=== PATIENT | male | born 1950 | race Caucasian/White ===

== ENCOUNTER → 2018-11-29 | Outpatient (CLI) | payer OTHER | LOC: CAT 14:47 | DX: Z13.6 Encounter for screening for cardiovascular disorders (principal); E78.00 Pure hypercholesterolemia, unspecified; I25.10 Atherosclerotic heart disease of native coronary artery without angina pectoris ==

== ENCOUNTER → 2020-01-12 | Outpatient (CLI) | payer OTHER | LOC: SJCVCIMAG 13:49 | PROVIDERS: ATTEND Internal Medicine Cardiovascular Disease | DX: I07.1 Rheumatic tricuspid insufficiency (principal); I11.9 Hypertensive heart disease without heart failure; I25.9 Chronic ischemic heart disease, unspecified; E78.5 Hyperlipidemia, unspecified ==